=== PATIENT | male | born 1980 | race African-American/Black ===

== ENCOUNTER 2016-05-24 14:17 | Emergency (ER) | payer OTHER ==
[~2016-05-24] VITALS: Ht 177.8 cm; Wt 107.5 kg
[2016-05-24 14:19] VITALS: BP 120/85; PULSE 69; TEMP 36.9; O2SAT 96; Ht 177.8 cm; Wt 107.5 kg
[2016-05-24] MEDS ORDERED: HYDR-5688 PO (14:34)
[2016-05-24] MEDS ORDERED: PENI-82 PO (14:34)
--- NOTE | 2016-05-24 14:35 | EMERGENCY ROOM VISIT NOTE ---
ED Visit Note First contact with patient: 14:23 CHIEF COMPLAINT: Toothache. HISTORY OF PRESENT ILLNESS: This is a 35 year-old male who ambulates into the complaining of dental pain. He reports a progressive dental pain over the last 2 weeks. He states he was diagnosed with cavities 4-5 months ago but has not been able to afford the $ 2300 his dentist requires to fix the tooth. The pain is now steady and severe and radiates to the face. He has been using Aleve which did not help the pain. He is advised of the proper dosage of Aleve. He rates his discomfort a 10/10. He denies any associated symptoms including fevers, chills, sweats, facial swelling, sore throat, difficulty swallowing, voice changes, drooling. REVIEW OF SYSTEMS: As noted above in History of Present Illness. 8 body systems were reviewed with this patient and found to be negative unless noted above otherwise. PMH: . Patient denies CURRENT MEDICATION: . Patient denies ALLERGIES TO MEDICATION: Patient denies. SOCIAL HISTORY: The patient states that he is a part-time student and recently moved here from [facility] he is not employed PHYSICAL EXAM: Vital Signs: Temperature 36.9 C orally; blood pressure ; heart rate ; respiratory rate . General: This is a 35-year-old male in mild distress due to pain, nontoxic appearing, afebrile and hemodynamically stable. Neurological: Awake, alert and oriented to person, place and time. Answering questions appropriately and following commands. Normal gait. Good hand eye coordination. No focal motor or sensory deficits. Skin: Warm, dry and pink. No soft tissue lesions, rashes, or trauma noted. HEENT: Atraumatic and normocephalic. Oral cavity is moist and pink. Airway is patent. Uvula is midline and no abscesses are seen. Airway is patent. Speech is normal. No drooling. No intraoral trauma is noted. There is no obvious signs of dental decay. No abscesses, erythema or edema identified. No cervical or submandibular lymphadenopathy. ED COURSE: Patient is assessed as noted above. The patient is afebrile and nontoxic in appearance. He does not have any facial swelling. There is no obvious abscess. The patient was told by his dentist that he has cavities and is trying to get enough money to have the tooth taken care of. I did ask case management to provide him with the information for [facility]. The patient will be given a prescription for [place] and penicillin. He should return with worsening symptoms. Otherwise, he should follow-up with his family doctor for further evaluation and management. Current/Historical Medications Scheduled Penicillin V Potassium (Veetids), 500 MG PO QID Scheduled PRN Hydrocodone/Acetaminophen 5MG/325MG ([place] 5MG/325MG), 1 TABLET PO Q6 PRN for Pain Vital Signs Date Time Temp Pulse Resp B/P Pulse Ox O2 Delivery O2 Flow Rate FiO2 05/24/16 14:19 36.9 69 18 120/85 96 Room Air Departure Information Impression Primary Impression: Dental caries Dispostion Home / Self-Care Condition GOOD Prescriptions Penicillin V Potassium (Veetids) 500 Mg Tab 500 MG PO QID, #40 TAB Prov: Tiffani Mcconnell PA-C 05/24/16 Hydrocodone/Acetaminophen 5MG/325MG ([place] 5MG/325MG) Tab 1 TABLET PO Q6 Y for Pain, #12 TAB For Initial Treatment Prov: Tiffani Mcconnell PA-C 05/24/16 Referrals No Doctor, Assigned (PCP) Patient Instructions Decay Tooth, My [facility] Additional Instructions Pen-Vee K 4 times daily for 10 days.Or[place] one tablet every 6 hours if needed for worse pain. Do not drink or drive while taking [place] and do not take with Tylenol. Followup with a dentist for definitive management of your tooth. Return with high fevers, worsening pain or swelling.
== END 2016-05-24 14:48 | disposition home or self-care (01) ==
LOC: C.EDB 14:19 → C.EDD 14:48
DX: K02.9 Dental caries, unspecified (principal)